=== PATIENT | female | born 2000 | race Two or more races ===

== ENCOUNTER 2022-11-07 13:13 | Emergency (ER) | payer OTHER ==
[~2022-11-07] VITALS: Ht 152.4 cm; Wt 68.0 kg
--- NOTE | 2022-11-07 13:40 | NUR ---
URINE SAMPLE COLLECTED AND SENT TO LAB
--- NOTE | 2022-11-07 13:43 | NUR ---
DR MCMULLEN AT BEDSIDE
[2022-11-07] MEDS ORDERED: ONDANSETRON HCL/PF 4 MG/2 ML VIAL ONE (13:54)
[2022-11-07] MEDS ORDERED: ONDANSETRON HCL/PF - ER 4 MG/2 ML VIAL IV ONE (14:00)
[2022-11-07] MEDS ORDERED: IV NS 0.9% 1,000 ML BAG IV ONE (14:00)
[2022-11-07 14:04] LABS: BILIRUBIN,URINE NEGATIVE (NEGATIVE); LEUKOCYTE ESTERASE ,URINE NEGATIVE (NEGATIVE); NITRITE, URINE NEGATIVE (NEGATIVE); PROTEIN,URINE TRACE mg/dl (NEGATIVE); UGLUCOSE TRACE mg/dL (NEGATIVE); UROBILINOGEN,URINE 0.2 EU/dL (0.2)
[2022-11-07 14:05] LABS: COLOR,URINE LIGHT YELLOW (YELLOW)
[2022-11-07 14:11] LABS: BASOPHILS # (AUTO) 0.1 K/uL (0.0-0.2); BASOPHILS % (AUTO) 0.6 % (0.0-2.0); HEMATOCRIT 40 % (33-45); HEMOGLOBIN 12.9 g/dL (11.5-14.8); LYMPHOCYTES # (AUTO) 1.6 K/uL (0.8-4.8); LYMPHOCYTES % (AUTO) 18.6 % (20.0-44.0); MEAN CORPUSCULAR HGB CONC 32 g/dl (31.0-36.0); MEAN CORPUSCULAR VOLUME 90 fL (82-100); MONOCYTES # (AUTO) 0.5 K/uL (0.1-1.30); MONOCYTES % (AUTO) 5.2 % (2.0-12.0); NEUTROPHILS # (AUTO) 6.6 K/uL (1.8-8.9); NEUTROPHILS % (AUTO) 75.6 % (43.0-81.0); PLATELET COUNT (AUTO) 335 K/uL (150-450); RED BLOOD CELL COUNT(AUTO) 4.47 MIL/uL (4.0-5.2); WHITE BLOOD COUNT (AUTO) 8.7 K/uL (4.3-11.0)
[2022-11-07 14:14] LABS: BILIRUBIN,DIRECT 0.1 mg/dL (0.0-0.2); BILIRUBIN,TOTAL 0.2 mg/dL (0.2-1.0); CALCIUM, SERUM 8.6 mg/dL (8.5-10.1); CREATININE 0.9 mg/dL (0.6-1.3); POTASSIUM 3.6 mmol/L (3.5-5.1); TOTAL PROTEIN, SERUM 7.7 g/dL (6.4-8.2)
[2022-11-07 14:27] LABS: RBC,URINE NONE SEEN /HPF (0-2)
[2022-11-07 14:29] LABS: BACTERIA,URINE Few /HPF (None Seen); SQUAMOUS EPITHELIAL CELL,UR Few /HPF (None Seen); WBC,URINE NONE SEEN /HPF (0-3)
[2022-11-07] MEDS ORDERED: NALO1DIS2 IM (17:38)
--- NOTE | 2022-11-07 18:00 | NUR ---
IV removed. Catheter intact and site benign. Pressure and 4x4 applied to site. No bleeding noted.Patient discharged to home in stable condition. Written and verbal after care instructions given. Patient verbalizes understanding of instruction. 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
[2022-11-11 14:20] VITALS: BP 125/76
== END 2022-11-07 18:00 | disposition home or self-care (01) ==
LOC: ER 13:51
DX: T40.2X1A Poisoning by other opioids, accidental (unintentional), initial encounter (principal); R40.4 Transient alteration of awareness; R11.2 Nausea with vomiting, unspecified; Y92.89 Other specified places as the place of occurrence of the external cause
CPT/HCPCS: 99283; 96374; 96361; 85025; 80048; 80076; 84703; 81001; 36415; J2405; J7030

== ENCOUNTER 2025-11-17 20:02 | Emergency (ER) | payer MEDICAID, OTHER ==
[~2025-11-17] VITALS: Ht 152.4 cm; Wt 61.2 kg
[~2025-11-17 20:02] MED LIST: NALO1DIS2 IM
[2025-11-17 20:59] VITALS: BP 124/58; TEMP 98.5; O2SAT 99
[2025-11-17] MEDS ORDERED: AMOX-430 PO (22:11)
[2025-11-17] MEDS ORDERED: AMOX/CLAVULANATE 875 MG TABLET ONE (22:19)
[2025-11-17] MEDS: AMOX/CLAVULANATE 875 MG TABLET PO ONE (22:23)
== END 2025-11-17 23:19 | disposition home or self-care (01) ==
LOC: ER 20:04
DX: S02.2XXA Fracture of nasal bones, initial encounter for closed fracture (principal); W22.8XXA Striking against or struck by other objects, initial encounter; Y93.89 Activity, other specified; Y92.89 Other specified places as the place of occurrence of the external cause; Y99.8 Other external cause status
CPT/HCPCS: 70160-TC